=== PATIENT | male | born 1985 | race African-American/Black ===

== ENCOUNTER 2020-11-28 19:35 | Emergency (ER) | payer OTHER ==
[~2020-11-28] VITALS: Ht 180.3 cm; Wt 99.8 kg
--- NOTE | 2020-11-28 19:40 | NUR ---
pt bibra c/o left sided arm and leg pain and dizziness. Pt aaox4 breathing evenly and unlabored. Pt attached to monitor and pox. +ab and +sb. Neuro checks intact. Pt skin warm,dry, and intact. Pt given blanket and call light within reach
[2020-11-28] MEDS ORDERED: ACETAMINOPHEN 325 MG TABLET ONE (20:59)
[2020-11-28] MEDS: ACETAMINOPHEN 325 MG TABLET PO ONE (21:00)
--- NOTE | 2020-11-28 22:00 | NUR ---
taken to ct
[2020-11-28] MEDS ORDERED: HYDROCODONE/APAP 5/325MG TABLET ONE (23:58)
[2020-11-29] MEDS: HYDROCODONE/APAP 5/325MG TABLET PO ONE
--- NOTE | 2020-11-29 00:26 | NUR ---
Patient discharged to home in stable condition. Written and verbal after care instructions given. Patient verbalizes understanding of instruction. Pt ambulatory with a steady gait
[2020-11-29 00:36] VITALS: BP 134/86
== END 2020-11-29 00:26 | disposition home or self-care (01) ==
LOC: ER 19:37
DX: S06.0X0A Concussion without loss of consciousness, initial encounter (principal); M54.6 Pain in thoracic spine; M54.2 Cervicalgia; V49.49XA Driver injured in collision with other motor vehicles in traffic accident, initial encounter; Y93.89 Activity, other specified; Y92.413 State road as the place of occurrence of the external cause; Y99.8 Other external cause status
CPT/HCPCS: 70450; 71045; 72125; 72128; 72131; 73030; 73060; 73080; 73090; 99285; L0172